=== PATIENT | female | born 1950 | race Caucasian/White ===

== ENCOUNTER → 2017-08-21 16:40 | Outpatient (CLI) | payer MEDICARE, BC, SELFPAY | PROVIDERS: Family Provider Family Medicine; PCP Family Medicine; Visit Provider Family Medicine | DX: N39.0 Urinary tract infection, site not specified (principal) | CPT/HCPCS: 87086; 87088 ==

== ENCOUNTER → 2018-01-06 09:01 | Outpatient (CLI) | payer MEDICARE, BC, SELFPAY ==
--- NOTE | 2018-01-06 09:07 | US_ITS ---
STUDY: SUPERFICIAL ULTRASOUND - NECK REASON FOR EXAM: Female, 67 years old. Enlarged lymph nodes. TECHNIQUE: A superficial ultrasound was performed with real-time and static maya-scale imaging. COMPARISON: None. FINDINGS: Real-time imaging of the bilateral neck demonstrates no evidence of enlarged lymph nodes. There is no other mass. Normal musculature and soft tissues are noted. US/Head/Neck Soft Tissue IMPRESSION: No evidence of cervical lymphadenopathy. Electronically Signed: Ravi Huerta DO at 20:20 EDT Tel [phone], Service support ,
== END ==
PROVIDERS: Family Provider Family Medicine; PCP Family Medicine; Visit Provider Family Medicine
DX: R59.0 Localized enlarged lymph nodes (principal)
CPT/HCPCS: 76536

== ENCOUNTER → 2018-01-31 08:10 | Outpatient (CLI) | payer MEDICARE, BC, SELFPAY ==
--- NOTE | 2018-01-31 08:14 | BI_ITS ---
MAMMOGRAPHY - UNILATERAL SCREENING: RIGHT BREAST REASON FOR EXAM: Female, 68 years old. Routine annual screening examination (unilateral). PERTINENT HISTORY: Personal history of breast cancer with previous left mastectomy. TECHNIQUE: Digital examination. Mediolateral oblique (MLO) and craniocaudad (CC) views of the breast were obtained, along with 3-D denisse synthesis. CAD: CAD was performed on this study. COMPARISON: 11/30/2016 FINDINGS: Breast Composition: The breasts are heterogeneously dense, which may obscure small masses. There are punctate calcifications in the retroareolar region of the right breast which have increased in number since the previous study and need further evaluation with magnification views. No suspicious solid mass is noted. BI/UNILAT RT SCRN W/CAD IMPRESSION: Further imaging evaluation recommended, as described above. Recall Side: Right Breast ASSESSMENT CATEGORY: BIRADS Category 0: Incomplete. Need additional imaging evaluation. A letter regarding these results will be sent to the patient by the facility within 30 days. FOLLOW UP RECOMMENDATION: Additional Views are Recommended. (E) [id number] Approximately 10% of breast cancers are not detected by mammography. A normal mammogram should not delay biopsy of a clinically suspicious abnormality. [id number] Electronically Signed: Aramis Beauchamp MD at 9:18 EDT , Service support ,
== END ==
PROVIDERS: Family Provider Family Medicine; PCP Family Medicine; Visit Provider Obstetrics & Gynecology
DX: Z12.31 Encounter for screening mammogram for malignant neoplasm of breast (principal); Z90.12 Acquired absence of left breast and nipple
CPT/HCPCS: 77061; 77063; 77067; G0279

== ENCOUNTER → 2018-02-03 08:45 | Outpatient (CLI) | payer MEDICARE, BC, SELFPAY ==
--- NOTE | 2018-02-03 08:46 | BI_ITS ---
MAMMOGRAPHY - UNILATERAL DIAGNOSTIC: RIGHT BREAST REASON FOR EXAM: Female, 68 years old. Abnormal screening mammogram. PERTINENT HISTORY: Non-contributory. TECHNIQUE: Compression magnification spot views of the right breast were obtained. CAD: Full Field Digital Mammography with Computer Added Detection was performed. COMPARISON: Comparison is made with prior mammogram dated January 31, 2018. FINDINGS: Breast Composition: The breasts are heterogeneously dense, which may obscure small masses. There are no dominant masses or suspicious calcifications. The previously seen calcifications are scattered. Routine mammographic follow-up is recommended. No other significant abnormalities are identified. BI/DIAG MAMM W/CAD, UNILAT IMPRESSION: Scattered microcalcifications in the retroareolar region of the breast as described. Routine mammographic follow-up is recommended. ASSESSMENT CATEGORY: BIRADS Category 2: Benign. A letter regarding these results will be sent to the patient by the facility within 30 days. Approximately 10% of breast cancers are not detected by mammography. A normal mammogram should not delay biopsy of a clinically suspicious abnormality. Electronically Signed: Collin Chavez MD at 11:16 EDT Tel [phone], Service support ,
== END ==
PROVIDERS: Family Provider Family Medicine; PCP Family Medicine; Visit Provider Obstetrics & Gynecology
DX: R92.8 Other abnormal and inconclusive findings on diagnostic imaging of breast (principal)
CPT/HCPCS: 77065

== ENCOUNTER → 2018-08-22 09:14 | Outpatient (CLI) | payer MEDICARE, BC, SELFPAY ==
--- NOTE | 2018-08-22 09:19 | RAD_ITS ---
STUDY: X-RAY CHEST REASON FOR EXAM: Female, 68 years old. Chest pain. TECHNIQUE: PA and lateral views of the chest. COMPARISON: None. FINDINGS: The lungs are hyperinflated. There is no focal consolidation. There are surgical clips projecting over the left axilla and left lower thorax. Normal size heart. Normal mediastinum and francine. Normal visualized pulmonary arteries. Normal visualized aortic arch and descending thoracic aorta. Normal visualized thoracic spine. Normal visualized ribs, clavicles, and shoulders. There is no demonstrated abnormality of the visualized soft tissue structures of the upper abdomen. RAD/Chest PA and Lateral IMPRESSION: Findings suggestive of COPD. Electronically Signed: Suzette Turner MD at 22:16 EST Tel , Service support ,
== END ==
PROVIDERS: Family Provider Family Medicine; PCP Family Medicine; Referring Provider Family Medicine; Visit Provider Family Medicine
DX: R07.89 Other chest pain (principal)
CPT/HCPCS: 71046

== ENCOUNTER → 2018-09-25 13:17 | Outpatient (CLI) | payer MEDICARE, BC, SELFPAY ==
--- NOTE | 2018-09-25 13:21 | CT_ITS ---
STUDY: CT ORBITS WITH CONTRAST REASON FOR EXAM: Female, 68 years old. PT STATED DROOPING EYE TISSUE, R/O THYROID EYE DISEASE RADIATION DOSAGE (If Supplied By Facility): CTDIvol = ( 29.38 ) mGy, DLP = ( 349.11 ) mGycm TECHNIQUE: The patient was scanned in a multi detector CT scanner. Transaxial imaging was performed following the intravenous administration of Isovue 370 50 IV. Sagittal and coronal images were reconstructed. Individualized dose optimization techniques were used for this CT. COMPARISON: None. FINDINGS: Normal globes. Normal intraconal spaces. Normal optic nerve sheath complex. Normal bilateral extraocular muscles. Normal lacrimal glands. Normal bilateral medial and inferior orbital meyer. Normal bilateral maxillary bones. Normal bilateral frontozygomatic arches. Normal bilateral zygomatic temporal arches. Normal frontal sinus. Normal ethmoidal sinuses. Normal maxillary sinuses. Normal sphenoid sinuses. Normal soft tissue structures. There is no demonstrated abnormal enhancement. CT/Orb Sella Post Fossa Ear W/CON IMPRESSION: Normal enhanced CT examination of the bilateral orbits. Electronically Signed: Patti Baez, at 16:22 EDT Tel , Service support ,
--- NOTE | 2018-09-25 13:21 | CT_ITS ---
STUDY: CT BRAIN WITH AND WITHOUT CONTRAST REASON FOR EXAM: Female, 68 years old. PT STATED DROOPING EYE TISSUE, R/O THYROID EYE DISEASE RADIATION DOSAGE (If Supplied By Facility): CTDIvol = ( 44.99 ) mGy, DLP = ( 1490.98 ) mGycm TECHNIQUE: Transaxial CT imaging of the brain was performed pre and post contrast administration. The examination was performed with intravenous administration of Isovue 370 50 IV. Individualized dose optimization techniques were used for this CT. COMPARISON: None. FINDINGS: Normal soft tissue structures. Normal calvarium. Normal size ventricles and extra-axial spaces for the patient's age. There are areas of decreased attenuation within the white matter tracts of the supratentorial brain, consistent with microvascular disease changes. Normal basal ganglia and thalami. Normal brainstem. Normal cerebellum. There is no intracranial hemorrhage. There are no findings of an acute ischemic infarction. Normal visualized paranasal sinuses. CT/Brain/Head W/WO Contrast IMPRESSION: Chronic involutional changes of the brain. Electronically Signed: Patti Baez, at 16:20 EDT Tel , Service support ,
[2018-09-25 13:46] LABS: CREATININE FINGERSTICK 0.9 mg/dL (0.55-1.02)
== END ==
PROVIDERS: Family Provider Family Medicine; PCP Family Medicine; Referring Provider Ophthalmology; Visit Provider Ophthalmology
DX: H02.849 Edema of unspecified eye, unspecified eyelid (principal)
CPT/HCPCS: 70470; 70481; Q9967

== ENCOUNTER → 2019-10-27 08:48 | Outpatient (CLI) | payer MEDICARE, BC, SELFPAY ==
--- NOTE | 2019-10-27 08:57 | BD_ITS ---
STUDY: DUAL ENERGY X-RAY ABSORPTIOMETRY / DXA REASON FOR EXAM: Female, 69 years old. 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 COMPARISON: Comparison is made with prior examination dated November 30, 2015. FINDINGS: Lumbar Spine (L1-L4): g/cm2 (0.821) / T-score (-3.0) / Z-score (-1.4) Findings are suggestive of osteoporosis with a high fracture risk. Increased thoracic kyphosis. Left Femur Total: g/cm2 (0.757) / T-score (-2.0) / Z-score (-0.7) Left Femoral Neck: g/cm2 (0.748) / T-score (-2.1) / Z-score (-0.5) Right Femur Total: g/cm2 (0.750) / T-score (-2.0) / Z-score (-0.7) Right Femoral Neck: g/cm2 (0.659) / T-score (-2.7) / Z-score (-1.1) The T-Scores on the most recent prior examination were: Lumbar Spine (L1-L4): There has been worsening of bone density since the previous examination. Left Femur Total: which represents a worsening of 6.2%. Right Femur Total: which represents a worsening of 6.3%. BD/Dexa Bone Density Study IMPRESSION: The patient is considered osteoporotic as outlined below according to World Christ Organization (WHO) criteria with a high fracture risk. There has been worsening of bone density since the previous examination. Reference Information: The T-score is the number of standard deviations above or below the standard which is normal for young adults at their peak bone mineral density. The World Health Organization (WHO) interprets the T-scores as follows: Above -1 Normal bone density Between -1 and -2.5 Osteopenia Equal to / or below -2.5 Osteoporosis As a practical clinical guideline, osteopenia may be graded as follows: Mild -1 through -1.5 Moderate -1.6 through -2.0 Severe -2.1 through -2.4 The Z-score is the number of standard deviations above or below age-matched controls. A Z-score of less than -1.5 would be considered abnormal. References: 1. NIH Osteoporosis and Related Bone Diseases http://www.osteo.org 2. International Society for Clinical Densitometry http://www.iscd.org 3. National Osteoporosis Foundation http://www.nof.org Electronically Signed: Collin Chavez, at 14:21 EDT , Service support ,
== END ==
PROVIDERS: PCP Family Medicine; Referring Provider Internal Medicine Hematology & Oncology; Visit Provider Internal Medicine Hematology & Oncology
DX: M81.0 Age-related osteoporosis without current pathological fracture (principal); Z78.0 Asymptomatic menopausal state; C90.00 Multiple myeloma not having achieved remission
CPT/HCPCS: 77080

== ENCOUNTER → 2020-04-11 09:53 | Outpatient (CLI) | payer MEDICARE, BC, SELFPAY ==
[2020-02-15 13:58] VITALS: BMI 20.3
--- NOTE | 2020-04-11 09:55 | BI_ITS ---
MAMMOGRAPHY - BILATERAL SCREENING REASON FOR EXAM: Female, 70 years old. Routine annual screening examination. PERTINENT HISTORY: P/H @ AGE 50 (CHEMO AND 10 YR ESTROGEN INHIBITOR) TRAMFLAP RECON AT [place] TIME, NEW DR JAMES MELTON WANTED RECONSTRUCTED SIDE IMAGED WELL , MAG VIEWS OF CALCS RETROAREOLAR AREA IN 2018=B, PT DIAGNOSED WITH SMOLTERING MULTIPLE MYELOMA IN 2018 TECHNIQUE: Digital bilateral breast fabian (3D mammographic acquisition) in the CC and MLO projections. 2-D mediolateral oblique (MLO) and craniocaudad (CC) views of both breasts were obtained. CAD: Full Field Digital Mammography with Computer Added Detection was performed. COMPARISON: 02/03/2018 and 09/30/2016 FINDINGS: Breast Composition: The breasts are heterogeneously dense, which may obscure small masses. There are no dominant masses or suspicious calcifications. No other significant abnormalities are identified. BI/SCREEN MAMM (CAD) W/FABIAN BILAT IMPRESSION: Stable bilateral screening mammogram. Yearly follow-up mammogram recommended. (A) ASSESSMENT CATEGORY: BIRADS Category 2: Benign. A letter regarding these results will be sent to the patient by the facility within 30 days. Approximately 10% of breast cancers are not detected by mammography. A normal mammogram should not delay biopsy of a clinically suspicious abnormality. [id number] Electronically Signed: Patti Baez, at 15:53 EDT Tel , Service support ,
== END ==
PROVIDERS: PCP Family Medicine; Referring Provider Student in an Organized Health Care Education/Training Program; Visit Provider Student in an Organized Health Care Education/Training Program
DX: Z12.31 Encounter for screening mammogram for malignant neoplasm of breast (principal); Z85.3 Personal history of malignant neoplasm of breast
CPT/HCPCS: 77063; 77067

== ENCOUNTER → 2021-04-24 13:29 | Outpatient (CLI) | payer MEDICARE, BC, SELFPAY ==
--- NOTE | 2021-04-24 13:32 | BI_ITS ---
MAMMOGRAPHY - UNILATERAL SCREENING: RIGHT BREAST REASON FOR EXAM: Female, 71 years old. Routine annual screening examination (unilateral). PERTINENT HISTORY: Personal history of breast cancer. Prior left mastectomy with a TRAM flap reconstruction. Patient refused a left mammogram at this time. TECHNIQUE: Digital unilateral breast fabian (3D mammographic acquisition) in the CC and MLO projections. 2-D mediolateral oblique (MLO) and craniocaudad (CC) views of both breasts were obtained. CAD: Full Field Digital Mammography with Computer Added Detection was performed. COMPARISON: Comparison is made with prior examination dated 04/11/2020 and 02/03/2018. FINDINGS: Breast Composition: The breasts are heterogeneously dense, which may obscure small masses. There are no dominant masses or suspicious calcifications. No other significant abnormalities are identified. There has been no significant change since the prior study. BI/SCREEN MAMM (CAD) W/FABIAN UNI R IMPRESSION: Stable unilateral screening mammogram. Yearly follow-up mammogram recommended. (A) ASSESSMENT CATEGORY: BIRADS Category 1: Negative. A letter regarding these results will be sent to the patient by the facility within 30 days. Approximately 10% of breast cancers are not detected by mammography. A normal mammogram should not delay biopsy of a clinically suspicious abnormality. [id number] Electronically Signed: Collin Chavez MD at 14:33 EDT , Service support ,
== END ==
PROVIDERS: PCP Family Medicine; Referring Provider Student in an Organized Health Care Education/Training Program; Visit Provider Student in an Organized Health Care Education/Training Program
DX: Z12.31 Encounter for screening mammogram for malignant neoplasm of breast (principal); Z90.12 Acquired absence of left breast and nipple; Z85.3 Personal history of malignant neoplasm of breast
CPT/HCPCS: 77063; 77067

== ENCOUNTER 2022-02-09 06:32 | Emergency (ER) | payer MEDICARE, BC, SELFPAY ==
[2022-02-09 06:36] VITALS: BP 205/119; PULSE 96; RESP 18; TEMP 37.1; O2SAT 98; BMI 18.8
--- NOTE | 2022-02-09 06:40 | CT_ITS ---
EXAM: CT ABDOMEN AND PELVIS WITH INTRAVENOUS CONTRAST CLINICAL INDICATION: Pain-RIGHT SIDE TECHNIQUE: Helically acquired images were obtained of the abdomen and pelvis with intravenous contrast. This CT exam was performed using one or more of the following dose reduction techniques: automated exposure control, adjustment of the mA and/or kV according to patient size, and/or use of iterative reconstruction technique. This report was created using [employer] report generation technology. CONTRAST: IV 100mL Isovue-300 COMPARISON: None. FINDINGS: LOWER THORAX: Moderate size pericardial effusion. Lung bases appear hyperinflated. ABDOMEN: LIVER: Normal. Homogeneous. No focal mass. GALLBLADDER AND BILE DUCTS: Normal. No calcified gallstones. No gallbladder distention or wall edema. No intra- or extrahepatic biliary ductal dilation. PANCREAS: Normal. No focal cystic or solid mass. SPLEEN: Normal. Normal size without focal cystic or solid mass. ADRENALS: Normal. No nodules. KIDNEYS AND URETERS: Nonobstructive right renal stones. Normal renal size and position. STOMACH AND BOWEL: Mild to moderate stool burden within the large bowel. PELVIS: APPENDIX: No evidence of acute appendicitis. BLADDER: Normal. REPRODUCTIVE: Unremarkable as visualized. No mass. ABDOMEN and PELVIS: INTRAPERITONEAL SPACE: Minimal amount of free fluid noted within the pelvis of doubtful significance. No free air. BONES/JOINTS: Normal. No suspicious lytic or blastic abnormality. SOFT TISSUES: Multiple surgical clips are noted along the left inferior chest wall and along the right side of the abdomen. No discrete abdominal or pelvic wall hernia. VASCULATURE: Normal. Abdominal aorta is non-dilated. LYMPH NODES: Normal. No enlarged lymph nodes. CT/Abdomen/Pelvis W IV Cont ONLY IMPRESSION: 1. Moderate size pericardial effusion. 2. COPD. 3. Right nephrolithiasis. 4. Mild constipation. Electronically Signed: Pako Nelson MD at 8:08 EDT ,
--- NOTE | 2022-02-09 06:41 | ED.VIS.GI ---
HPI <Sha Alcaraz MD - Last Filed: 02/09/22 06:45> HPI - GI History of Present Illness Chief Complaint: Abd Pain Narrative Narrative: Patient with past medical history of Parkinson's disease presents with her because of right-sided abdominal pain that she has had since 2:00 AM, almost 5 hours ago. She states she went to bed last evening around 9 PM, and she awoke from sleep with right-sided abdominal pain. It is sharp and stabbing. She denies any exacerbating or alleviating factors. No fevers or chills. No nausea or vomiting. She last had normal bowel movement yesterday morning. She denies any dysuria or hematuria. No previous intra-abdominal surgeries. She did have a transflap performed 20 years ago secondary to remote breast carcinoma. She presents because of the right-sided abdominal pain. Its in between the right upper to right lower quadrant. PFSH <Sha Alcaraz MD - Last Filed: 02/09/22 06:45> [facility] Medical History Breast cancer Breast lump Cancer H/O urinary tract infection Donna's thyroiditis Hives HTN (hypertension) Parkinson's disease Home Medications calcium carbonate 600 mg-vitamin D3 12.5 mcg (500 unit) capsule (Calcium 600 with Vitamin D3) 1 cap PO DAILY 12/17/19 [History Last Taken Unknown] fluorometholone 0.1 % eye drops,suspension 1 drp ophthalmic (eye) DAILY 12/17/19 [History Last Taken Unknown] levothyroxine 100 mcg tablet (Levoxyl) 100 mcg PO DAILY 12/17/19 [History Last Taken Unknown] montelukast 10 mg tablet (Singulair) 10 mg PO DAILY #30 tabs 02/15/20 [Rx Last Taken Unknown] Prolia 60 mg/mL subcutaneous syringe (denosumab) 60 mg subcut [id number] osteoporosis #1 mL 01/01/22 [Rx Last Taken Unknown] carbidopa 25 mg-levodopa 100 mg tablet 6 tablet PO DAILY 01/01/22 [History Last Taken Unknown] cetirizine 10 mg capsule (Zyrtec) 10 mg PO DAILY 02/09/22 [History Last Taken Unknown] Allergy/AdvReac Type Severity Reaction Status Date / Time amoxicillin Allergy Severe hives Verified 02/09/22 06:33 Family History Mother Anemia Diabetes Hypertension Osteoporosis Father Cancer Diabetes Myocardial infarction Melanoma Surgical History History of tonsillectomy Hx of mastectomy Social History Smoking Status: Never smoker alcohol intake: never substance use type: does not use what type of physical activity do you participate in: walking frequency: 3-4 times per week ROS <Sha Alcaraz MD - Last Filed: 02/09/22 06:45> ROS ED ROS Narrative Constitutional: No fever, no chills. HEENT: No sore throat. No neck pain. No loss of vision. No rhinorrhea. Cardiovascular: No chest pain. No palpitations. No pedal edema. Respiratory: No cough, no shortness of breath. Abdominal: Right-sided abdominal pain, sharp and stabbing. No nausea. No vomiting. Genitourinary: No dysuria. No hematuria. Musculoskeletal: No myalgias. No arthralgias. Neurologic: No headaches. No dizziness. No lightheadedness. Skin: No rash. No change in color. Psychiatric: No depression. No anxiety. EXAM <Sha Alcaraz MD - Last Filed: 02/09/22 06:45> Physical Exam Narrative Exam Narrative: Afebrile. Vital signs noted. HEENT: Normocephalic. Atraumatic. PERRL, EOMI. Neck soft and supple. No point tenderness or step off. Cardiovascular: Regular rate and rhythm. No murmurs, rubs, or gallops appreciated. Respiratory: No tachypnea. Lungs clear to auscultation bilaterally. Gastrointestinal: Abdomen soft, mild tenderness in right flank with normoactive bowel sounds. No rebound or guarding. Negative Ngo sign. Neurological: Awake. Alert. Nonfocal, nonlateralizing. Skin: No rash. Normal color. No pallor. Musculoskeletal: No pedal edema. Full range of motion extremities. Const Vital Signs: 02/09/22 06:36 02/09/22 06:50 Temperature 98.7 F Temperature Source Temporal Pulse Rate 96 Respiratory Rate 18 Blood Pressure 205/119 H 193/101 H Blood Pressure Mean 147 131 Pulse Ox 98 Oxygen Delivery Method Room Air <Dr. Sahara Guan DO - Last Filed: 02/09/22 09:08> Physical Exam Const Vital Signs: 02/09/22 06:36 02/09/22 06:50 Temperature 98.7 F Temperature Source Temporal Pulse Rate 96 Respiratory Rate 18 Blood Pressure 205/119 H 193/101 H Blood Pressure Mean 147 131 Pulse Ox 98 Oxygen Delivery Method Room Air MDM <Sha Alcaraz MD - Last Filed: 02/09/22 06:45> [facility] Narrative Medical decision making narrative: Comprehensive work-up was pursued. Given mild tenderness over McBurney's point, concern is for acute appendicitis. She has an elevated blood pressure of 205/119. She states she does not take medication for this. She will be administered hydralazine 5 mg intravenously. I offered her analgesia, but she declined. Her CBC, CMP, lipase, urinalysis, and CT of the abdomen and pelvis with IV contrast are currently pending. She will be signed out to the morning physician to check the laboratory work, and CT and make final disposition on this patient with right-sided abdominal pain. Currently, patient is in stable condition. Lab Data Labs: Laboratory Results - last 24 hr 02/09/22 02/09/22 02/09/22 06:40 06:40 07:54 WBC 2.5 L RBC 3.74 L Hgb 12.0 Hct 36.0 L MCV 96.3 MCH 32.1 H MCHC 33.3 RDW Std Deviation 48.4 H RDW Coeff of Raisa 13.6 Plt Count 140 L MPV 9.0 Immature Gran % (Auto) 0.000 Neut % (Auto) 64.0 Lymph % (Auto) 32.0 [place] % (Auto) 2.0 Eos % (Auto) 1.6 Baso % (Auto) 0.4 Absolute Neuts (auto) 1.6 L Absolute Lymphs (auto) 0.80 L Nucleated RBC % 0 Sodium 140 Potassium 4.3 Chloride 107 Carbon Dioxide 29.0 Anion Gap 4 L BUN 26 H Creatinine 0.74 Estim Creat Clear Calc 46.61 Est GFR (MDRD) Af Amer 100 Est GFR (MDRD) Non-Af 82 BUN/Creatinine Ratio 35.1 H Glucose 119 H Calcium 9.1 Total Bilirubin 0.60 AST 24 ALT 13 Alkaline Phosphatase 72 Total Protein 6.6 Albumin 3.2 Globulin 3.4 Albumin/Globulin Ratio 0.9 Lipase 146 Urine Color Straw Urine Clarity Clear Urine pH 7.0 Ur Specific [place] 1.005 Urine Protein Negative Urine Glucose (UA) Normal Urine Ketones Negative Urine Occult Blood 25 H Urine Nitrite Negative Urine Bilirubin Negative Urine Urobilinogen Normal Ur Leukocyte Esterase 25 H Urine RBC 0-5 SEEN Urine WBC 0-5 SEEN Ur Squamous Epith Cells 0-5 SEEN Urine Bacteria 0 SEEN Urine Mucus 0 SEEN Radiography Diagnostic Testing: Clinical Impression(s) from Imaging Studies Abdomen/Pelvis CT 02/09/22 06:40 IMPRESSION: 1. Moderate size pericardial effusion. 2. COPD. 3. Right nephrolithiasis. 4. Mild constipation. Electronically Signed: Pako Nelson MD at 8:08 EDT , <Dr. Sahara Guan, DO - Last Filed: 02/09/22 09:08> [facility] Narrative Medical decision making narrative: Comprehensive work-up was pursued. Given mild tenderness over McBurney's point, concern is for acute appendicitis. She has an elevated blood pressure of 205/119. She states she does not take medication for this. She will be administered hydralazine 5 mg intravenously. I offered her analgesia, but she declined. Her CBC, CMP, lipase, urinalysis, and CT of the abdomen and pelvis with IV contrast are currently pending. She will be signed out to the morning physician to check the laboratory work, and CT and make final disposition on this patient with right-sided abdominal pain. Currently, patient is in stable condition. Patient signed out to me pending lab results and CT results. Patient slight improvement of her blood pressure. On repeat evaluation she states she feels well and has no complaints. Abdomen is soft and nontender. She has a mild leukopenia however patient does admit that she had a mild cold last week. Remainder of lab work is unremarkable. CT shows a mild constipation and instantly shows a moderate pericardial effusion. Patient denies any dyspnea on exertion, chest discomfort or other findings consistent with tamponade pathology. She is actually hypertensive in the emergency room. Suspect this is incidental finding and patient informed of it and need for outpatient follow-up. She states she has been doing with smaller bowel movements and takes half a packet of MiraLAX every other day. Counseled to increase this is her stool burden might be contributing to her abdominal pain. Given that she is currently asymptomatic, otherwise well-appearing will discharge home. No signs of acute appendicitis or other acute surgical abnormality of her abdomen. Given return precautions. Is given a referral for cardiology. Is not started on any antihypertensives that she is also been dealing with hypotension intermittently with her Parkinson's disease. Lab Data Attestation: I reviewed the patient's lab results. Labs: Laboratory Results - last 24 hr 02/09/22 02/09/22 02/09/22 06:40 06:40 07:54 WBC 2.5 L RBC 3.74 L Hgb 12.0 Hct 36.0 L MCV 96.3 MCH 32.1 H MCHC 33.3 RDW Std Deviation 48.4 H RDW Coeff of Raisa 13.6 Plt Count 140 L MPV 9.0 Immature Gran % (Auto) 0.000 Neut % (Auto) 64.0 Lymph % (Auto) 32.0 [place] % (Auto) 2.0 Eos % (Auto) 1.6 Baso % (Auto) 0.4 Absolute Neuts (auto) 1.6 L Absolute Lymphs (auto) 0.80 L Nucleated RBC % 0 Sodium 140 Potassium 4.3 Chloride 107 Carbon Dioxide 29.0 Anion Gap 4 L BUN 26 H Creatinine 0.74 Estim Creat Clear Calc 46.61 Est GFR (MDRD) Af Amer 100 Est GFR (MDRD) Non-Af 82 BUN/Creatinine Ratio 35.1 H Glucose 119 H Calcium 9.1 Total Bilirubin 0.60 AST 24 ALT 13 Alkaline Phosphatase 72 Total Protein 6.6 Albumin 3.2 Globulin 3.4 Albumin/Globulin Ratio 0.9 Lipase 146 Urine Color Straw Urine Clarity Clear Urine pH 7.0 Ur Specific [place] 1.005 Urine Protein Negative Urine Glucose (UA) Normal Urine Ketones Negative Urine Occult Blood 25 H Urine Nitrite Negative Urine Bilirubin Negative Urine Urobilinogen Normal Ur Leukocyte Esterase 25 H Urine RBC 0-5 SEEN Urine WBC 0-5 SEEN Ur Squamous Epith Cells 0-5 SEEN Urine Bacteria 0 SEEN Urine Mucus 0 SEEN Radiography Diagnostic Testing: Clinical Impression(s) from Imaging Studies Abdomen/Pelvis CT 02/09/22 06:40 IMPRESSION: 1. Moderate size pericardial effusion. 2. COPD. 3. Right nephrolithiasis. 4. Mild constipation. Electronically Signed: Pako Nelson MD at 8:08 EDT , Discharge Plan Triage Chief Complaint: Abd Pain ED Provider: Sha Alcaraz Dx/Rx/DC Orders Clinical Impression: Abdominal pain, Elevated blood pressure reading, History of Parkinson's disease, HTN (hypertension), Pericardial effusion Instructions: ED Abdominal Pain Unkn Cause Fem, ED Hypertension, To Be Confirmed Prescriptions: No Action levothyroxine [Levoxyl] 100 mcg tablet 100 mcg PO DAILY fluorometholone 0.1 % drops,suspension 1 drp OPHTHALMIC DAILY Rx Instructions: each eye calcium carbonate-vitamin D3 [Calcium 600 with Vitamin D3] 600 mg(1,500mg) -500 unit capsule 1 cap PO DAILY montelukast [Singulair] 10 mg tablet 10 mg PO DAILY Qty: 30 3RF carbidopa-levodopa 25-100 mg tablet 6 tablet PO DAILY Prolia 60 mg/mL syringe 60 mg SC [id number] Qty: 1 1RF Rx Instructions: injected 60 mg Denosumab lt abdomen Zyrtec 10 mg Capsule 10 mg PO DAILY Primary Care Provider: Farhan Sotelo Referrals: Farhan Sotelo DO [Primary Care Provider] - Rasta Rico MD [Med Staff - Active Staff] - Activity Restrictions/Additional Instructions: Your work-up today showed elevated blood pressure, mild constipation and some increased fluid around the heart called a pericardial effusion. It is possible her constipation could be causing her abdominal pain. No signs of acute appendicitis, kidney stones or anything else acute on your CT. Please follow-up with your primary care doctor or cardiology (you have been given referral for 1) for your pericardial effusion as well as your blood pressure. Please take a full packet of MiraLAX every other day to help have better bowel movements. Disposition Disposition: Home, Self Care
[2022-02-09 06:50] VITALS: BP 193/101
[2022-02-09 06:52] LABS: Absolute Neutrophil Count 1.6 X10^3/uL (2.0-7.7); Basophil# 0.01 X10^3/uL; Basophil% 0.4 % (0-1); Eosinophil# 0.04 X10^3/uL; Eosinophils% 1.6 % (0-5); Mean Corp Hgb Conc 33.3 g/dL (32-36); Mean Corpuscular Hgb 32.1 pg (27.0-32.0); Mean Corpuscular Volume 96.3 fL (81-99); Monocyte# 0.05 X10^3/uL; NRBC Flagged by Analyzer 0 % (0-5); Platelet Count 140 K/mm3 (150-450); RBC Distribution Width CV 13.6 % (11.6-14.6); RBC Distribution Width SD 48.4 fl (35.1-43.9); Red Blood Count 3.74 M/mm3 (4.2-5.4); White Blood Count 2.5 K/mm3 (4.4-11.0)
[2022-02-09] MEDS: 0.9% Normal Saline 1,000 ML 1000 ML IV (06:52)
[2022-02-09] MEDS: hydrALAZINE 20 MG/ML Vial 5 MG IV (06:52)
[2022-02-09 07:11] LABS: BUN 26 mg/dL (7-18); Creatinine, Serum 0.74 mg/dL (0.55-1.02); EST Glomerular Filtration Rate 82 mL/min (>60); Estimated Creatinine Clearance 46.61 ml/min; Glucose 119 mg/dL (74-106)
[2022-02-09 07:12] LABS: ALB/GLOB Ratio 0.9 RATIO (0.9-2.4); AST(SGOT) 24 U/L (15-37); Alanine Aminotransfer ALT/SGPT 13 U/L (13-56); Albumin, Serum 3.2 g/dL (3.2-5.0); Alkaline Phosphatase 72 U/L (45-117); Anion Gap 4 (5-15); BUN/Creat Ratio 35.1 RATIO (10-20); Calcium,Total 9.1 mg/dL (8.5-10.1); Chloride 107 mmol/L (98-107); Est Glom Filt Rate - Afr Amer 100 mL/min (>60); Globulin 3.4 g/dL (2.2-4.2); Lipase 146 U/L (73-393); Potassium 4.3 mmol/L (3.5-5.1); Protein, Total 6.6 g/dL (6.4-8.2); Sodium Level 140 mmol/L (136-145)
[2022-02-09 07:59] LABS: Bacteria 0 SEEN /hpf (None Seen); Mucous, Urine 0 SEEN /hpf (<or=2+)
[2022-02-09 08:02] LABS: Color, Urine Straw (Yellow); Glucose, Dipstick Normal (Normal); Ketone-Dipstick Negative (Negative); Leukocyte Esterase-Dipstick 25 /ul (Negative); Nitrite-Dipstick Negative (Negative); Occult Blood-Urine 25 /ul (Negative); Protein-Dipstick Negative (Negative); Specific Gravity, Urine 1.005 (1.002-1.030); Urine Bilirubin Dipstick Negative (Negative); Urine Clarity Clear (Clear); Urine Urobilinogen Normal (Normal)
[2022-02-09 08:33] LABS: Red Blood Cells-Urine 0-5 SEEN /hpf (0-5); Squamous Epithelial Cells - UA 0-5 SEEN /hpf (5-10); White Blood Cells 0-5 SEEN /hpf (0-5)
[2022-02-09 09:26] VITALS: BP 189/95; O2SAT 96
== END 2022-02-09 09:26 | disposition home or self-care (01) ==
PROVIDERS: Emergency Provider Emergency Medicine; PCP Family Medicine; Visit Provider Emergency Medicine
DX: R10.11 Right upper quadrant pain (principal); G20 Parkinson's disease; R10.31 Right lower quadrant pain; I31.3 Pericardial effusion (noninflammatory); I10 Essential (primary) hypertension
CPT/HCPCS: 74177; 80053; 81001; 83690; 85025; 96361; 96374; 99282; J7030; Q9967; A4216

== ENCOUNTER → 2022-02-16 | Outpatient (CLI) | payer MEDICARE, BC, SELFPAY ==
[2022-02-16 15:39] LABS: CPK Total, Creatine Kinase 108 U/L (26-192); T4 Free Direct 1.03 ng/dL (0.76-1.46); Thyroid Stim Hormone (TSH) 3.51 uIU/mL (0.358-3.74)
== END | disposition home or self-care (01) ==
LOC: LAB 13:38
PROVIDERS: PCP Family Medicine; Visit Provider Family Medicine
DX: I31.3 Pericardial effusion (noninflammatory) (principal); E03.9 Hypothyroidism, unspecified
CPT/HCPCS: 36415; 82550; 84439; 84443

== ENCOUNTER → 2022-02-20 | Outpatient (CLI) | payer MEDICARE, BC, SELFPAY ==
--- NOTE | 2022-02-20 12:48 | CT_ITS ---
INDICATION: ABD PAIN EXAMINATION: CT ABDOMEN WITHOUT CONTRAST - CT Abdomen W/O Contrast Injection TECHNIQUE: Multiple axial images were obtained of the abdomen without oral or IV contrast. A radiation dose optimization technique was used for this scan. IV Contrast dosage and agent: None. Oral contrast: Administered. COMPARISON: February 09, 2022 CT abdomen and pelvis. Chest radiograph August 22, 2018. FINDINGS: LOWER CHEST: Partially seen moderate dependent pericardial effusion, not significant changed from February 09, 2022 Lung bases are clear. No cardiomegaly or pericardial effusion. LIVER: Homogeneous., Prominent in size without change from prior exam. No noncontrast evidence of focal mass. GALLBLADDER AND BILIARY TREE: Nondistended. Layering density in the gallbladder suggestive of sludge or prior vicarious excretion of contrast. No gross wall thickening or surrounding inflammation. No intra- or extrahepatic biliary ductal dilation. PANCREAS: No focal cystic or solid mass. SPLEEN: Normal size without focal cystic or solid mass. ADRENAL GLANDS: No nodules. KIDNEYS AND URETERS: Bilateral nonobstructive renal stones up to 6.5 mm in size. No hydronephrosis or perinephric inflammation. PERITONEUM: No ascites or free air. No other fluid collection. BOWEL: Stomach and small bowel oral contrast present without distention or focal wall thickening in the study field of view. Normal appendix. Imaged portion of colon is stool-filled from cecum to rectosigmoid colon. No focal inflammatory change. LYMPH NODES: No enlarged mesenteric or retroperitoneal lymph nodes. VESSELS: Aortic atherosclerosis without ectasia within the study [id number].. ABDOMINAL WALL: No discrete abdominal wall hernia. BONES: No lytic or blastic abnormality. Small right iliac bone island. CT/Abdomen WITH ORAL Cont Only IMPRESSION: Large colonic stool burden as can be seen with constipation. Layering density in the gallbladder which can be seen with sludge or vicarious excretion of contrast. No gross gallbladder wall thickening to suggest inflammation. Ultrasound could further evaluate as clinically indicated. Nonobstructive bilateral nephrolithiasis. Partially seen moderate pericardial effusion without visible change from February 09, 2022. Electronically Signed: Ghanshyam Lopez MD at 8:56 EDT ,
== END | disposition home or self-care (01) ==
LOC: CT 12:47
PROVIDERS: PCP Family Medicine; Referring Provider Family Medicine; Visit Provider Family Medicine
DX: K59.00 Constipation, unspecified (principal); N20.0 Calculus of kidney
CPT/HCPCS: 74150

== ENCOUNTER → 2022-03-02 | Outpatient (CLI) | payer MEDICARE, BC, SELFPAY ==
--- NOTE | 2022-03-02 12:45 | ECHOD_ITS ---
Reason For Study: Pericardial Effusion Procedure This was a 2D Doppler, Color Flow transthoracic echocardiogram. Myocardial strain analysis was performed in this exam to aid in the assessment of cardiac function. Exam performed in department. Left Ventricle Normal LV size. The estimated ejection fraction is 65 %. Unable to assess diastolic dysfunction. No regional wall motion abnormalities noted. Right Ventricle Normal RV size. Normal systolic function. Atria Normal left atrium. Normal right atrium. No doppler evidence for ASD. Mitral Valve There is no mitral valve stenosis. Trivial mitral valve insufficiency. Tricuspid Valve There is no tricuspid stenosis. Trivial tricuspid valve insufficiency. Pulmonary artery systolic pressure is 25-30 mmHg. Aortic Valve Trisinus/trileaflet aortic valve. Aortic sclerosis, no stenosis. There is no aortic stenosis. Trivial aortic valve insufficiency. Pulmonic Valve There is no pulmonic valvular stenosis. No pulmonic valve insufficiency. Great Vessels Normal aortic root. Pericardium/Pleural small to moderate effusion. There are no echocardiographic indications of cardiac tamponade. MMode/2D Measurements & Calculations LVIDd: 4.3 cm IVSd: 0.98 cm Ao root diam: 2.7 cm LVIDs: 2.8 cm LVPWd: 1.0 cm RVDd: 2.8 cm FS: 35.4 % LAV(MOD-bp): 49.6 ml LVAd ap4: 22.2 cm2 SV(MOD-sp4): 35.2 ml LAV(MOD-bp) Indexed: 29.6 ml/m2 LVLd ap4: 6.9 cm LAV(MOD-sp2): 47.7 ml EDV(MOD-sp4): 58.6 ml LAV(MOD-sp4): 50.7 ml EDV(sp4-el): 60.4 ml LVAs ap4: 12.7 cm2 LVLs ap4: 5.8 cm ESV(MOD-sp4): 23.4 ml ESV(sp4-el): 23.7 ml EF(MOD-sp4): 60.1 % EF(sp4-el): 60.7 % SV(sp4-el): 36.7 ml LA A4 area: 18.2 cm2 LA dimension(2D): 3.9 cm RA A4 area: 11.4 cm2 Doppler Measurements & Calculations MV E max noah: 69.8 cm/sec Lat Peak E' Noah: 5.7 cm/sec Med Peak E' Noah: 4.3 cm/sec MV A max noah: 110.3 cm/sec E/E' lat: 12.2 E/E' med: 16.3 MV E/A: 0.63 Ao V2 max: 116.9 cm/sec LV V1 max: 99.0 cm/sec PA V2 max: 103.0 cm/sec Ao max P.5 mmHg LV V1 max P.9 mmHg Ao V2 mean: 86.8 cm/sec Ao mean P.3 mmHg Ao V2 VTI: 23.7 cm TR max noah: 237.4 cm/sec TR max P.5 mmHg ECHO/Echo Complete Interpretation Summary The estimated ejection fraction is 65 %. Unable to assess diastolic dysfunction. Trivial mitral valve insufficiency. Trivial aortic valve insufficiency. small to moderate effusion. There are no echocardiographic indications of cardiac tamponade. Ordering Physician: Farhan Sotelo Referring Physician: Farhan Sotelo Performed By: Lila Jay, [place], RVT
== END | disposition home or self-care (01) ==
LOC: CVS 12:43
PROVIDERS: PCP Family Medicine; Referring Provider Family Medicine; Visit Provider Family Medicine
DX: I31.3 Pericardial effusion (noninflammatory) (principal)
CPT/HCPCS: 93306

== ENCOUNTER → 2022-04-30 | Outpatient (CLI) | payer MEDICARE, BC, SELFPAY ==
--- NOTE | 2022-04-30 09:04 | BI_ITS ---
MAMMOGRAPHY - UNILATERAL DIAGNOSTIC: RIGHT BREAST REASON FOR EXAM: Female, 72 years old. Status post left mastectomy. PERTINENT HISTORY: Personal history of breast cancer. Prior left mastectomy and TRAM flap reconstruction. TECHNIQUE: Digital unilateral breast denisse (3D mammographic acquisition) in the CC and MLO projections. 2-D mediolateral oblique (MLO) and craniocaudad (CC) views of both breasts were obtained. Magnification spot views of the right breast were obtained as well. CAD: Full Field Digital Mammography with Computer Added Detection was performed. COMPARISON: Comparison is made with prior study dated 04/24/2021. FINDINGS: Breast Composition: The breasts are heterogeneously dense, which may obscure small masses. Since prior examination, microcalcifications of increased in number in the anterior retroareolar region. There also has been an increase in the number of microcalcifications in the deep central aspect of the right breast. Correlation with biopsy recommended. No other significant abnormalities are identified. BI/DIAG MAMM W/CAD, UNILAT IMPRESSION: Increase in the number of microcalcifications in the anterior retroareolar region of the right breast as well as in the deep central aspect of the right breast. Biopsy recommended. ASSESSMENT CATEGORY: BIRADS Category 4: Suspicious - Biopsy Should Be Considered. A letter regarding these results will be sent to the patient by the facility within 30 days. Approximately 10% of breast cancers are not detected by mammography. A normal mammogram should not delay biopsy of a clinically suspicious abnormality. Electronically Signed: Collin Chavez MD at 10:12 EDT ,
== END | disposition home or self-care (01) ==
LOC: OPBI 08:59
PROVIDERS: PCP Family Medicine; Visit Provider Student in an Organized Health Care Education/Training Program
DX: Z85.3 Personal history of malignant neoplasm of breast (principal)
CPT/HCPCS: 77061; 77065; G0279

== ENCOUNTER → 2022-05-04 | Outpatient (CLI) | payer MEDICARE, BC, SELFPAY ==
--- NOTE | 2022-05-04 11:20 | BRBX_PTH ---
PATIENT: JOHN POZO LOC: [facility] U#:[id number] AGE/SX: 72/F ROOM: RE05/04/[address]: Dr. Melanie Dailey MD : 1950 BED: DIS: 05/04/2022 SPEC #: [id number] RECD: 05/04/22 13:28 STATUS: BRIGITTE REQ #: [id number] MISSY: 05/04/22 11:[address]: Melanie Dailey DEPT: SURGICAL PATHOLOGY RECD BY: Cheyanne Hernandez ENTERED: 05/04/22 13:35 SP TYPE: BREAST BX OTHR DR: Dr. Farhan Sotelo, DO Tissues: A - Right breast, NOS B - Right breast, NOS Procedures: Surgery Specimen Level IV HEADER OPERATION: Right breast stereotactic biopsy (two areas) PRE-OP DIAGNOSIS: Right breast microcalcifications TISSUE SUBMITTED: A ? Posterior calcifications, B ? Retroareolar calcifications ISCHEMIC TIME: 1 minute FIXATION TIME: 56 hours MICROSCOPIC DIAGNOSIS A. Right posterior breast, stereotactic core biopsy: Densely collagenized stroma with dystrophic Banal microcalcifications. Mild fibrocystic change. B. Retroareolar right breast, stereotactic core biopsy: Densely collagenized stroma with dystrophic Banal microcalcifications. Mild fibrocystic change. AM:moira 05/07/2022 MICROSCOPIC DESCRIPTION Slides are reviewed. GROSS DESCRIPTION A - Received in fixative is one container labeled with the patient's name and designated posterior calcifications. The specimen consists of multiple irregular and elongated fragments of pink-white soft tissue that in aggregate measure 5 x 3.5 x 0.2 cm. The specimen is totally submitted in two cassettes. B - Received in fixative is one container labeled with the patient's name and designated retroareolar calcifications. The specimen consists of multiple irregular and elongated fragments of pink-white soft tissue that in aggregate measure 4.2 x 2.8 x 0.2 cm. The specimen is totally submitted in two cassettes. / AM:moira 05/04/2022 TC:5 CPT: 49206 x2
--- NOTE | 2022-05-04 12:27 | OP.PCM_ITS ---
Report of Operation Date of Procedure: 05/04/22 Pre-Operative Diagnosis: Right breast microcalcifications retroareolar and post erior Post-Operative Diagnosis: Same Surgery/Procedure Performed:: Stereotactic guided biopsy of right breast calcifications areolar and posteriorly Surgeon: Melanie Dailey Type of Anesthesia: Local Estimated Blood Loss (mL): 10 cc Description of Procedure: Procedure: Right stereotactic core biopsy Indications: 72year-old female with microcalcifications in the areolar and posterior of the right breast. Risk benefits were discussed the patient and she elected to proceed with stereotactic core biopsy with clip placement Description of procedure: Patient was brought into the mammography suite and laid prone on the stereotactic table. A timeout was completed verifying correct patient, procedure, site, specially, prior to beginning procedure. The right breast was prepped and draped in usual sterile fashion and using local anesthe zulma was obtained with 1% lidocaine with epi. Both sites were done similarly. Patient's right breast was positioned and placed into compression. Initial film showed calcifications are in the center of the compression paddle. 15? views were then taken. The calcifications were localized. The left breast was prepped draped in usual sterile fashion. An 8-gauge (10-gauge was used for the retroareolar) mammotome was set up according to the digital coordinates. The tract of the mammotome was anesthetized with local anesthesia and an incision was made with the 11 blade scalpel at the entry site. The mammotome was advanced to the prefire state. Pre-prior films were checked and verified. The mammotome was fired. Post fire films were also checked and verified. Biopsies were taken from from 12:00 to 11:00. The specimen was x-rayed and good representation the calcifications were within the specimen. Mammotome clip (coil clip posteriorly and barbell retroareolar) was placed at the 12 o'clock position. The mammotome was removed from the breast. An additional films were taken which showed that targeted calcifications were removed and a clip was in place. Pressure was held for hemostasis. Once hemostasis was assured the wound was dressed with Steri-Strips and OpSite. The patient tolerated the procedure well and was discharged from the mammography suite good condition. complications: none Complications none
== END | disposition home or self-care (01) ==
LOC: BIRAD 10:28
PROVIDERS: PCP Family Medicine; Referring Provider Surgery; Visit Provider Surgery
DX: N60.11 Diffuse cystic mastopathy of right breast (principal); R92.1 Mammographic calcification found on diagnostic imaging of breast
CPT/HCPCS: 19082; 19081; 88305; J7050; A4648

== ENCOUNTER → 2022-06-13 | Outpatient (CLI) | payer MEDICARE, BC, SELFPAY ==
[2022-06-17 19:06] LABS: Clam <0.10 kU/L (Class 0); Codfish <0.10 kU/L (Class 0); Corn <0.10 kU/L (Class 0); Egg, White <0.10 kU/L (Class 0); Milk (Cow) <0.10 kU/L (Class 0); Peanut <0.10 kU/L (Class 0); SCALLOP <0.10 kU/L (Class 0); Shrimp <0.10 kU/L (Class 0); Soybean <0.10 kU/L (Class 0); Walnut, (Food) <0.10 kU/L (Class 0); Wheat <0.10 kU/L (Class 0)
[2022-06-19 11:26] LABS: SESAME SEED <0.10 kU/L (Class 0)
== END | disposition home or self-care (01) ==
PROVIDERS: PCP Family Medicine; Visit Provider Family Medicine
DX: T78.3XXA Angioneurotic edema, initial encounter (principal)
CPT/HCPCS: 36415; 86003

== ENCOUNTER → 2022-10-19 | Outpatient (CLI) | payer MEDICARE, BC, SELFPAY | END | disposition home or self-care (01) | PROVIDERS: PCP Family Medicine; Visit Provider Family Medicine | DX: J06.9 Acute upper respiratory infection, unspecified (principal) | CPT/HCPCS: 87635; U0003; U0005 ==

== ENCOUNTER → 2023-10-02 | Outpatient (CLI) | payer MEDICARE, BC, SELFPAY ==
--- NOTE | 2023-10-02 11:43 | STRESSREP ---
Stress Test Report Pharmacologic myocardial perfusion stress test. 73-year-old lady with a history of dyspnea Resting EKG demonstrates sinus rhythm with a rate of 96 bpm. Resting blood pressure is 160/90 mmHg. 0.4 mg of regadenoson was infused per usual protocol followed by rapid intravenous saline flush injection. Continuous EKG monitoring was performed. The maximum heart rate was 118 bpm which was 79% of max impacted heart rate the maximum workload was 1 metabolic equivalent. At rest there were no ST or T wave changes noted to suggest ischemia and at peak infusion nonspecific ST changes were noted which did not meet the criteria for ischemia. No clinical angina is noted. The final blood pressure was 146/62 mmHg. Myocardial perfusion protocol. 11.6 mCi of technetium 99m sestamibi was injected at rest. 0.4 mg of regadenoson was infused per usual protocol. At peak infusion 32.5 mCi of technetium 99m sestamibi was injected stress images were obtained stress and rest images were reconstructed and compared in the short axis vertical long and horizontal long axis. Gated images were also obtained. Perfusion SPECT analysis: Review of the stress images demonstrate normal uptake of tracer noted in all areas of the myocardium. The resting images similar demonstrated normal uptake of tracer noted in all areas of the myocardium. No areas of reversibility are noted to suggest ischemia and no previous infarct is noted. Gated SPECT analysis: The gated ejection fraction is 66%. Conclusion: Normal pharmacologic myocardial perfusion stress test. Preserved ejection fraction.
== END | disposition home or self-care (01) ==
LOC: CVS 06:43
PROVIDERS: PCP Family Medicine; Referring Provider Family Medicine; Visit Provider Family Medicine
DX: R06.09 Other forms of dyspnea (principal)
CPT/HCPCS: 78452; 93017; A9500; A4216; J2785

== ENCOUNTER → 2023-10-04 | Outpatient (CLI) | payer MEDICARE, BC, SELFPAY | END | disposition home or self-care (01) | LOC: PSN 09:17 | PROVIDERS: PCP Family Medicine; Referring Provider Family Medicine; Visit Provider Family Medicine | DX: R06.09 Other forms of dyspnea (principal) | CPT/HCPCS: 94060; 94726; 94729 ==

== ENCOUNTER → 2023-11-14 | Outpatient (CLI) | payer MEDICARE, BC, SELFPAY ==
--- NOTE | 2023-11-14 13:53 | ECHOD_ITS ---
Reason For Study: PINON, ABNL PFT Procedure This was a 2D Doppler, Color Flow transthoracic echocardiogram. Exam performed in department. Left Ventricle Normal LV size. Left ventricular systolic function is normal. The estimated ejection fraction is 60 %. Stage 2 diastolic dysfunction. No regional wall motion abnormalities noted. Right Ventricle Normal RV size. Normal systolic function. Atria The left atrium is mildly enlarged. Normal right atrium. Mitral Valve There is Moderate focal posterior mitral annular calcification. Mild focal mitral valve thickening. Mild-Moderate (1-2+) mitral valve insufficiency. Tricuspid Valve Normal tricuspid valve. Mild (1+) tricuspid valve insufficiency. Pulmonary artery systolic pressure is 34 mmHg. Aortic Valve Trisinus/trileaflet aortic valve. Mild focal aortic valve thickening. Mild (1+) aortic valve insufficiency. Pulmonic Valve Normal pulmonic valve. Mild (1+) pulmonic valve insufficiency. Great Vessels Normal aortic root. Pericardium/Pleural Small pericardial effusion. There are no echocardiographic indications of cardiac tamponade. MMode/2D Measurements & Calculations LVIDd: 4.4 cm IVSd: 0.90 cm LVOT diam: 2.1 cm LVIDs: 3.2 cm LVPWd: 1.0 cm LVOT area: 3.4 cm2 RVDd: 2.4 cm FS: 25.6 % Ao root diam: 3.3 cm LAV(MOD-bp): 66.1 ml LVAd ap4: 29.4 cm2 LAV(MOD-bp) Indexed: 41.0 ml/m2 LVLd ap4: 8.1 cm LAV(MOD-sp2): 68.1 ml EDV(MOD-sp4): 88.9 ml LAV(MOD-sp4): 54.6 ml EDV(sp4-el): 89.8 ml LVAs ap4: 19.0 cm2 LVLs ap4: 6.9 cm ESV(MOD-sp4): 43.7 ml ESV(sp4-el): 44.0 ml EF(MOD-sp4): 50.9 % EF(sp4-el): 51.0 % SV(MOD-sp4): 45.2 ml SV(sp4-el): 45.8 ml LA A4 area: 17.3 cm2 LA dimension(2D): 3.9 cm RA A4 area: 15.8 cm2 TAPSE: 2.4 cm Time Measurements MV dec time: 0.16 sec Doppler Measurements & Calculations MV E max noah: 86.4 cm/sec Lat Peak E' Noah: 6.9 cm/sec Med Peak E' Noah: 5.4 cm/sec MV A max noah: 94.7 cm/sec E/E' lat: 12.4 E/E' med: 16.0 MV E/A: 0.91 MV V2 max: 121.2 cm/sec MV P1/2t max noah: 110.4 cm/sec Ao V2 max: 115.0 cm/sec MV max P.9 mmHg MV P1/2t: 50.6 msec Ao max P.3 mmHg MV V2 mean: 77.0 cm/sec Ao V2 mean: 88.9 cm/sec MV mean P.6 mmHg MV dec slope: 639.2 cm/sec2 Ao mean P.3 mmHg MV V2 VTI: 33.1 cm MVA(P1/2t): 4.3 cm2 Ao V2 VTI: 25.3 cm AV (velocity ratio): 0.80 MVA(VTI): 2.1 cm2 EDGAR(I,D): 2.7 cm2 EDGAR(V,D): 2.9 cm2 AI max noah: 512.9 cm/sec LV V1 max: 96.8 cm/sec MR max noah: 617.5 cm/sec AI max P.3 mmHg LV V1 max P.7 mmHg MR max P.5 mmHg LV V1 mean P.9 mmHg MR mean noah: 516.3 cm/sec AI dec slope: 369.7 cm/sec2 LV V1 mean: 65.0 cm/sec MR mean P.3 mmHg AI P1/2t: 406.3 msec LV V1 VTI: 20.2 cm MR VTI: 231.9 cm SV(LVOT): 68.3 ml PA V2 max: 83.6 cm/sec TR max noah: 277.9 cm/sec TR max P.9 mmHg ECHO/Echo Complete Interpretation Summary The estimated ejection fraction is 60 %. Stage 2 diastolic dysfunction. The left atrium is mildly enlarged. Mild-Moderate (1-2+) mitral valve insufficiency. Mild (1+) tricuspid valve insufficiency. Mild (1+) aortic valve insufficiency. Small pericardial effusion. There are no echocardiographic indications of cardiac tamponade. Ordering Physician: Farhan Sotelo Referring Physician: Farhan Sotelo Performed By: Jackie Porras RVT, RDCS and Student
== END | disposition home or self-care (01) ==
LOC: CVS 13:52
PROVIDERS: PCP Family Medicine; Referring Provider Family Medicine; Visit Provider Family Medicine
DX: R06.09 Other forms of dyspnea (principal); I28.9 Disease of pulmonary vessels, unspecified
CPT/HCPCS: 93306

== ENCOUNTER → 2024-04-07 | Outpatient (CLI) | payer MEDICARE, BC, SELFPAY ==
--- NOTE | 2024-04-07 17:41 | CT_ITS ---
We are attempting to reach an attending provider to discuss findings. An addendum with communication details will be sent when the communication is complete. EXAM: CT ABDOMEN AND PELVIS WITH INTRAVENOUS CONTRAST CLINICAL INDICATION: Pelvic pain. Vaginal bleeding. TECHNIQUE: Helically acquired images were obtained of the abdomen and pelvis with intravenous contrast. This CT exam was performed using one or more of the following dose reduction techniques: automated exposure control, adjustment of the mA and/or kV according to patient size, and/or use of iterative reconstruction technique. CONTRAST: IV-100 ML ISOVUE 300 RADIATION DOSE: CTDIvol = 8.22 mGy, DLP = 333.19 mGy-cm COMPARISON: CT abdomen and pelvis with IV contrast 02/09/2022. CT abdomen with oral contrast 02/20/2022. FINDINGS: LOWER THORAX: Linear atelectasis in the left lung base. No cardiomegaly. No significant pericardial effusion. ABDOMEN: LIVER: Unremarkable. Homogeneous. No focal mass. GALLBLADDER AND BILE DUCTS: Unremarkable. No calcified gallstones. No gallbladder distention or wall edema. No intra- or extrahepatic biliary ductal dilation. PANCREAS: Unremarkable. No focal cystic or solid mass. SPLEEN: Unremarkable. Normal size without focal cystic or solid mass. ADRENALS: Unremarkable. No nodules. KIDNEYS AND URETERS: Unremarkable. Normal renal size and position. No hydronephrosis. STOMACH AND BOWEL: Fecal contents in the colon. Normal collapse of the empty small bowel. Normal stomach. No stomach or bowel distention. No focal inflammatory change. PELVIS: APPENDIX: The appendix is not visualized. No secondary signs of acute appendicitis. BLADDER: Unremarkable. REPRODUCTIVE: Unremarkable as visualized. No visible hypervascular uterine mass seen with uterine fibroids. ABDOMEN and PELVIS: INTRAPERITONEAL SPACE: Unremarkable. No ascites or other fluid collection. No free air. BONES/JOINTS: Unremarkable. No suspicious lytic or blastic abnormality. SOFT TISSUES: Unremarkable. No discrete abdominal or pelvic wall hernia. VASCULATURE: Multiple dilated and enhancing veins overlying the anterior surface of the uterus and in both sides of the uterus. These all drain into both inferior ovarian veins and ultimately drain into the right and left renal veins respectively. These are at least varices. LYMPH NODES: Unremarkable. No enlarged lymph nodes. CT/Abdomen/Pelvis W IV Cont ONLY IMPRESSION: 1. Multiple enhancing dilated and tortuous venous varices overlying the anterior surface of the uterus and in both sides of the uterus. No associated uterine mass or uterine fibroid. These venous varices drain into the right and left inferior ovarian veins and ultimately drain into the right and left renal veins respectively. These are new since 02/09/2022. If pelvic AVM and/or AV fistula are clinical considerations, conventional pelvic arteriogram or CTA of the abdomen and pelvis may be helpful for further clarification. 2. No acute abnormality, mass or cyst in the abdomen and pelvis. Electronically Signed: Sha Agosto MD at 9:50 EDT ,
[2024-04-07 18:06] LABS: CREATININE FINGERSTICK < 1.0 mg/dL (0.55-1.02); EGFR FINGERSTICK > 60.0000 mL/min (>60)
== END | disposition home or self-care (01) ==
PROVIDERS: PCP Family Medicine; Referring Provider Family Medicine; Visit Provider Family Medicine
DX: R10.2 Pelvic and perineal pain (principal); N93.9 Abnormal uterine and vaginal bleeding, unspecified; R63.4 Abnormal weight loss; Z85.3 Personal history of malignant neoplasm of breast
CPT/HCPCS: 74177; Q9967

== ENCOUNTER → 2024-04-17 | Outpatient (CLI) | payer MEDICARE, BC, SELFPAY ==
--- NOTE | 2024-04-17 12:56 | US_ITS ---
EXAM: US PELVIS TRANSABDOMINAL LIMITED AND TRANSVAGINAL CLINICAL INDICATION: VAGINAL BLEEDING, CT SHOWED UTERINE VARICES TECHNIQUE: Transabdominal (limited) and transvaginal pelvic ultrasound was performed with grayscale and color Doppler imaging. Transvaginal imaging was used for better evaluation of the endometrium and adnexa. COMPARISON: No relevant prior studies available. FINDINGS: UTERUS/CERVIX: The uterus measures 5.8 x 2.5 x 4.2 cm. There are prominent vessels surrounding the uterus is enlarged measuring 9 mm in diameter which may represent varices. There are calcifications seen within the uterus. The endometrium measures 3 mm. Anteverted. RIGHT OVARY: Unremarkable. Non-enlarged, normal echogenicity. Blood flow is present in the right ovary. LEFT OVARY: Unremarkable. Non-enlarged, normal echogenicity. Blood flow is present in the left ovary. FREE FLUID: None. BLADDER: The bladder measures 7.6 x 4.4 x 8.5 cm for a volume of 147 mL. US/Pelvic w/ Transvaginal IMPRESSION: Pelvic varices possibly representing pelvic congestion syndrome. No other abnormalities are identified. Electronically Signed: Romie Sanabria MD at 21:10 EDT ,
== END | disposition home or self-care (01) ==
LOC: US 12:55
PROVIDERS: PCP Family Medicine; Referring Provider Family Medicine; Visit Provider Family Medicine
DX: N93.9 Abnormal uterine and vaginal bleeding, unspecified (principal)
CPT/HCPCS: 76830; 76856

== ENCOUNTER → 2025-01-22 | Outpatient (CLI) | payer MEDICARE, BC, SELFPAY ==
[2025-01-22 12:10] LABS: Color, Urine Yellow (Yellow); Glucose, Dipstick Normal (Normal); Ketone-Dipstick 5 mg/dl (Negative); Leukocyte Esterase-Dipstick 25 /ul (Negative); Nitrite-Dipstick Negative (Negative); Occult Blood-Urine 150 /ul (Negative); Protein-Dipstick 30 mg/dl (Negative); Specific Gravity, Urine 1.015 (1.002-1.030); Urine Bilirubin Dipstick Negative (Negative)
[2025-01-22 12:14] LABS: Hematocrit 32.7 % (37-47); Hemoglobin 10.9 g/dL (12.0-15.0); Immature Granulocytes Count 0.010 X10^3/uL (0.0-0.0); Mean Corp Hgb Conc 33.3 g/dL (32-36); Mean Corpuscular Volume 98.8 fL (81-99); Mean Platelet Vol. 9.8 fl (6.2-12.0); NRBC Flagged by Analyzer 0 % (0-5); POSITIVE DIFFERENTIAL YES; Platelet Count 122 K/mm3 (150-450); RBC Distribution Width CV 13.7 % (11.6-14.6); RBC Distribution Width SD 49.4 fl (35.1-43.9); Red Blood Count 3.31 M/mm3 (4.2-5.4); White Blood Count 1.6 K/mm3 (4.4-11.0)
[2025-01-22 12:15] LABS: Differential Indicated SCAN CRITERIA MET
[2025-01-22 13:02] LABS: AST(SGOT) 19 U/L (<=31); Alanine Aminotransfer ALT/SGPT 5 U/L (<=34); Albumin, Serum 3.8 g/dL (3.4-4.8); Alkaline Phosphatase 67 U/L (35-104); Anion Gap 9 (5-15); BUN 26 mg/dL (4-19); BUN/Creat Ratio 40.0 RATIO (10-20); CRP 8.00 mg/L (0.0-3.0); Calcium,Total 9.0 mg/dL (7.6-11.0); Carbon Dioxide 28.0 mmol/L (21.0-32.0); Chloride 102 mmol/L (98-108); Globulin 2.3 g/dL (2.2-4.2); Glucose 66 mg/dL (70-99); Potassium 4.1 mmol/L (3.3-5.1); Vitamin B12 261 pg/mL (180-914)
== END | disposition home or self-care (01) ==
LOC: BFHLAB 09:53
PROVIDERS: PCP Family Medicine; Referring Provider Family Medicine; Visit Provider Family Medicine
DX: R53.1 Weakness (principal); R53.83 Other fatigue; N39.0 Urinary tract infection, site not specified
CPT/HCPCS: 36415; 80053; 81002; 82607; 84443; 85025; 85652; 86140; 87086; 87088

== ENCOUNTER → 2025-02-11 | Outpatient (CLI) | payer MEDICARE, BC, SELFPAY ==
--- NOTE | 2025-02-11 15:05 | CT_ITS ---
PROCEDURE: CT BRAIN/HEAD WITHOUT CONTRAST 02/11/2025 REASON FOR EXAM: DIZZINESS/GIDDINESS TECHNIQUE: CT BRAIN/HEAD WITHOUT CONTRAST Coronal and Sagittal reconstruction series were provided. One or more dose reduction techniques were used (e.g., Automated exposure control, adjustment of the mA and/or kV according to patient size, use of iterative reconstruction technique. RADIATION DOSE SUMMARY: CTDlvol: 44.99 mGy DLP: 779.24 mGycm COMPARISON: 09/25/2018 FINDINGS: No acute intracranial hemorrhage, extra-axial collection, mass effect or evidence of acute infarct. Mild age-appropriate generalized brain parenchymal volume loss. Cavum septum pellucidum, anatomic variant. Absent [place] ocular lenses. Clear paranasal sinuses and bilateral mastoid air cells. CT/Brain/Head without Contrast IMPRESSION: No acute intracranial abnormality. Reading Location: [id number]
== END | disposition home or self-care (01) ==
LOC: CT 14:48
PROVIDERS: PCP Family Medicine; Referring Provider Family Medicine; Visit Provider Family Medicine
DX: R42 Dizziness and giddiness (principal); R53.83 Other fatigue
CPT/HCPCS: 70450

== ENCOUNTER → 2025-04-15 | Outpatient (CLI) | payer MEDICARE, BC, SELFPAY ==
--- NOTE | 2025-04-15 08:03 | BI_ITS ---
EXAM: SCRN MAMM (CAD)W/FABIAN BILAT DATE: 04/15/2025 CLINICAL HISTORY: F, Age 75 y/o , SCREENING History of breast cancer. Prior left mastectomy. TECHNIQUE: Procedure Code: [id number] Modality: MG Procedure: SCRN MAMM (CAD)W/FABIAN BILAT COMPARISON: Prior exam(s) dated 05/04/2022, 04/30/2022, and 04/24/2021 FINDINGS: TISSUE DENSITY: April 30, 2022. Bilateral Breast Mammographic Findings: No significant masses, calcifications or other abnormalities are identified. A tissue clip marker is seen in the central lateral aspect of the right breast. No suspicious mass lesion or calcifications are seen. No suspicious masses, areas of developing architectural distortion, or suspicious calcifications. There has been no significant interval change. BI/SCREEN MAMM (CAD) W/FABIAN UNI R IMPRESSION: Status post right stereotactic breast biopsy. No suspicious abnormality is see n. OVERALL FINAL ASSESSMENT BI-RADS 2: BENIGN RECOMMENDATION: Routine annual follow-up in 1 Year Additional Recommendation none A letter with findings and recommendations will be mailed to the patient. Reading Location: [facility]
== END | disposition home or self-care (01) ==
LOC: OPBI 08:02
PROVIDERS: PCP Family Medicine; Referring Provider Family Medicine; Visit Provider Family Medicine
DX: Z12.31 Encounter for screening mammogram for malignant neoplasm of breast (principal)
CPT/HCPCS: 77063; 77067

== ENCOUNTER → 2025-04-20 | Outpatient (CLI) | payer MEDICARE, BC, SELFPAY | END | disposition home or self-care (01) | PROVIDERS: PCP Family Medicine; Referring Provider Family Medicine; Visit Provider Family Medicine | DX: N39.0 Urinary tract infection, site not specified (principal) | CPT/HCPCS: 87077; 87086; 87088; 87186 ==

== ENCOUNTER → 2025-05-12 | Outpatient (CLI) | payer MEDICARE, BC, SELFPAY ==
--- NOTE | 2025-05-12 13:45 | RAD_ITS ---
PROCEDURE: RAD/Abd Inc Decub and/or Erect
[2025-05-12 18:04] LABS: Hematocrit 32.5 % (37-47); Hemoglobin 10.8 g/dL (12.0-15.0); Immature Granulocytes Count 0.000 X10^3/uL (0.0-0.0); Mean Corp Hgb Conc 33.2 g/dL (32-36); Mean Corpuscular Volume 99.7 fL (81-99); Mean Platelet Vol. 9.7 fl (6.2-12.0); NRBC Flagged by Analyzer 0 % (0-5); POSITIVE DIFFERENTIAL YES; Platelet Count 153 K/mm3 (150-450); RBC Distribution Width CV 14.4 % (11.6-14.6); RBC Distribution Width SD 51.8 fl (35.1-43.9); Red Blood Count 3.26 M/mm3 (4.2-5.4); White Blood Count 2.4 K/mm3 (4.4-11.0)
[2025-05-12 18:24] LABS: Differential Indicated SCAN CRITERIA MET
[2025-05-12 18:45] LABS: AST(SGOT) 24 U/L (<=31); Alanine Aminotransfer ALT/SGPT 7 U/L (<=34); Albumin, Serum 3.8 g/dL (3.4-4.8); Alkaline Phosphatase 73 U/L (35-104); Anion Gap 9 (5-15); BUN 25 mg/dL (4-19); BUN/Creat Ratio 31.9 RATIO (10-20); CORTISOL PM 7.21 ug/dL (2.68-10.50); Calcium,Total 9.4 mg/dL (7.6-11.0); Carbon Dioxide 29.2 mmol/L (21.0-32.0); Chloride 102 mmol/L (98-108); Globulin 2.3 g/dL (2.2-4.2); Glucose 83 mg/dL (70-99); Potassium 3.4 mmol/L (3.3-5.1); Vitamin D,25 Hydroxy 41.6 ng/mL (30-100)
[2025-05-12 18:50] LABS: CRP < 3.00 mg/L (0.0-3.0)
[2025-05-12 21:38] LABS: Differential Comment SCANNED
== END | disposition home or self-care (01) ==
LOC: MTLAB 13:44
PROVIDERS: PCP Family Medicine; Referring Provider Family Medicine; Visit Provider Family Medicine
DX: R19.7 Diarrhea, unspecified (principal); R53.83 Other fatigue; E55.9 Vitamin D deficiency, unspecified
CPT/HCPCS: 36415; 74019; 80053; 82306; 82533; 85025; 85652; 86140